=== PATIENT | male | born 1995 | race Caucasian/White ===

== ENCOUNTER 2016-11-08 14:03 | Emergency (ER) | payer OTHER ==
[2016-11-08 15:19] VITALS: BP 142/77
--- NOTE | 2016-11-08 15:54 | UC ---
Skin Complaint HPI - HPI Summary HPI Summary: TODAY FOUND PERFECTLY ROUND SMALL RED NATIVE OF RIGHT MID BACK. NO TICK BITES. NO PAIN. NO ITCH. NO TRAUMA. LAST NIGHT WAS DRUNK, MAY HAVE SLEPT ON PHONE. NO FEVER. NO RASH ANYWHERE ELSE. - History of Current Complaint Chief Complaint: UCSkin Time Seen by Provider: 11/08/16 15:09 Stated Complaint: SKIN COMPLAINT Hx Obtained From: Patient Onset/Duration: Sudden Onset, Lasting Hours, Still Present Skin Exposure Onset/Duration: Hours Ago Onset Severity: Mild Current Severity: None Location: Discrete - RIGHT MIDBACK Character: Redness Aggravating: Nothing Alleviating: Nothing Associated Signs & Symptoms: Positive: Rash Related History: Trauma - UNKNOWN HAD BEEN DRUNK LAST NIGHT, Possible Reaction to: Environmental Exposure - Allergy/Home Medications Allergies/Adverse Reactions: Allergies Allergy/AdvReac Type Severity Reaction Status Date / Time No Known Allergies Allergy Verified 11/08/16 15:19 Review of Systems Constitutional: Negative Skin: Rash - PERFECTLY ROUND 1.5cm 1mm WIDE LINEAR RED NATIVE ON RIGHT MID BACK. Eyes: Negative ENT: Negative Respiratory: Negative Cardiovascular: Negative Gastrointestinal: Negative Genitourinary: Negative Motor: Negative Neurovascular: Negative Musculoskeletal: Negative Neurological: Negative Psychological: Negative All Other Systems Reviewed And Are Negative: Yes PMH/Surg Hx/FS Hx/Imm Hx Previously Healthy: Yes - Surgical History Surgical History: Yes Surgery Procedure, Year, and Place: [place] Teeth Extraction - Family History Known Family History: Negative: Diabetes, Blood Disorder - Social History Occupation: Student Lives: With Family Alcohol Use: Occasionally Substance Use Type: None Smoking Status (MU): Never Smoked Tobacco Household Exposure Type: Cigarettes Physical Exam Triage Information Reviewed: Yes Appearance: Well-Appearing, No Pain Distress, Well-Nourished Vital Signs: Initial Vital Signs Temp 99.0 F 11/08/16 15:15 Pulse 68 11/08/16 15:15 Resp 16 11/08/16 15:15 BP 142/77 11/08/16 15:15 Pulse Ox 100 11/08/16 15:15 Vital Signs Reviewed: Yes Eye Exam: Normal Eyes: Positive: Conjunctiva Clear ENT Exam: Normal ENT: Positive: Normal ENT inspection, Hearing grossly normal, Pharynx normal, TMs normal Dental Exam: Normal Neck exam: Normal Neck: Positive: Supple, Nontender, No Lymphadenopathy Respiratory Exam: Normal Respiratory: Positive: Chest non-tender, Lungs clear, Normal breath sounds, No respiratory distress, No accessory muscle use Cardiovascular Exam: Normal Cardiovascular: Positive: RRR, No Murmur Abdominal Exam: Normal Abdomen Description: Positive: Nontender, No Organomegaly Musculoskeletal Exam: Normal Musculoskeletal: Positive: Strength Intact, ROM Intact Neurological Exam: Normal Psychological Exam: Normal Psychological: Positive: Normal Response To Family Skin: Positive: rashes - PERFECTLY ROUND 1.5cm 1mm WIDE LINEAR RED NATIVE ON RIGHT MID BACK. Course/Dx - Differential Diagnoses - Skin Complaint Differential Diagnoses: Allergic Reaction, Cellulitis, Contact Dermatitis, Eczema, Impetigo, Local Allergic Reaction, Tick Born Illness, Tinea, Varicella Zoster - Diagnoses Provider Diagnoses: CONTACT DERMATITIS RIGHT MID BACK Discharge - Discharge Plan Condition: Stable Disposition: HOME Prescriptions: Hydrocortisone 0.5% OINT(NF) 1 applic .SEE ORDER BID #1 tube Patient Education Materials: Contact Dermatitis (ED) Referrals: [facility] [Outside] Images Front/Back of Body, Lg ([place]): 1 - PERFECTLY ROUND 1.5cm 1mm WIDE LINEAR RED NATIVE ON RIGHT MID BACK.
== END 2016-11-08 15:49 | disposition home or self-care (01) ==
LOC: UCCORT 14:03
DX: L25.9 Unspecified contact dermatitis, unspecified cause (principal); Z77.22 Contact with and (suspected) exposure to environmental tobacco smoke (acute) (chronic)
CPT/HCPCS: 99202; G0463